=== PATIENT | female | born 1970 | race American Indian/Alaskan Native ===

== ENCOUNTER 2017-02-06 05:56 | Day surgery (SDC) | payer OTHER ==
[2017-02-04 10:30] LABS: Basophils % (Auto) 0.2 % (0.0-1.8); Eosinophils % (Auto) 1.3 % (0.0-4.3); Hematocrit 37.2 % (30.3-42.9); Mean Corpuscular HGB Conc 32 % (30-34); Mean Corpuscular Hemoglobin 28 pg (28-32); Mean Corpuscular Volume 86 fl (79-97); Platelet Count 196 K/mm3 (140-440); Red Blood Count 4.35 M/mm3 (3.65-5.03); Red Cell Distribution Width 14.5 % (13.2-15.2); White Blood Count 8.7 K/mm3 (4.5-11.0)
--- NOTE | 2017-02-04 10:38 | Anesthesia Consultation ---
Anesthesia Consult and Med Hx Date of service: 02/04/17 - Airway Anesthetic Teeth Evaluation: Good ROM Head & Neck: Adequate Mental/Hyoid Distance: Adequate Mallampati Class: Class I Intubation Access Assessment: Good - Pulmonary Exam CTA: Yes - Cardiac Exam Cardiac Exam: RRR - Pre-Operative Health Status ASA Pre-Surgery Classification: ASA3 Proposed Anesthetic Plan: General - Cardiovascular System Hx Hypertension: Yes (x7 years) Hx Coronary Artery Disease: Yes (CHF, STENT x1) Hx Heart Attack/AMI: Yes (02/2015 IN [place]) - Gastrointestinal Hx Gastroesophageal Reflux Disease: Yes (no issues the past 7 months, no meds) - Hematic Hx Anemia: Yes (RESOLVED) - Other Systems Hx Alcohol Use: Yes (SOCIALLY) Hx Substance Use: No Hx Cancer: No - Additional Comments Anesthesia Medical History Comments: april 2016 had fluid on lungs, Resolved
[2017-02-04 10:50] LABS: Anion Gap 18 mmol/L; BUN/Creatinine Ratio 26; Blood Urea Nitrogen 13 mg/dL (7-17); Carbon Dioxide 24 mmol/L (22-30); Chloride 101.7 mmol/L (98-107); Glucose 145 mg/dL (65-100); Potassium 3.9 mmol/L (3.6-5.0); Sodium 140 mmol/L (137-145)
--- NOTE | 2017-02-05 20:21 | History and Physical Report ---
History of Present Illness Date of examination: 01/30/17 Chief complaint: Menorrhagia, endometrial mass, uterine fibroids History of present illness: Past History : 1 Term Births: 1 Living Children: 1 # 1 Delivery date: 1984 Delivery type: ONCOLOGY RN History Operations: Cardiac catheterization with stent (2015) [place] [facility] [place]: negative Uterine Anomaly: positive fibroids Infection History Hx of STD: HSV Active Medications (reviewed today): OXYCODONE-ACETAMINOPHEN 5-325 MG ORAL TABLET (OXYCODONE-ACETAMINOPHEN) 1-2po q6h ASPIRIN 81 MG ORAL TABLET (ASPIRIN) NITROGLYCERIN 0.4 MG/SPRAY TRANSLINGUAL SOLUTION (NITROGLYCERIN) VENTOLIN HFA 108 (90 BASE) MCG/ACT INHALATION AEROSOL SOLUTION (ALBUTEROL SULFATE) DICLOFENAC SODIUM 75 MG ORAL TABLET DELAYED RELEASE (DICLOFENAC SODIUM) SPIRONOLACTONE 25 MG ORAL TABLET (SPIRONOLACTONE) VALSARTAN 160 MG ORAL TABLET (VALSARTAN) METOPROLOL SUCCINATE ER 25 MG ORAL TABLET EXTENDED RELEASE 24 HOUR (METOPROLOL SUCCINATE) VITAMIN D2 2000 UNIT ORAL TABLET (ERGOCALCIFEROL) FUROSEMIDE 40 MG ORAL TABLET (FUROSEMIDE) ATORVASTATIN CALCIUM 40 MG ORAL TABLET (ATORVASTATIN CALCIUM) Current Allergies (reviewed today): No known allergies Past Medical History: Reviewed history from 12/12/2016 and no changes required: Myocardial Infarction (2015) knee (L) and foot (B) pain Asthma Hypertension Vitamin D deficiency Past Surgical History: Cardiac catheterization with stent (2015) [place] [facility] [place] History Summary: Reviewed history and no changes required: 02/05/2017 Father (biol.) - Has Family History of Prostate Cancer - Entered On: 01/20/2017 Mother (biol.) - Has Family History Breast Cancer - daignosed age 60 - Entered On: 01/20/2017 Other family member - Has No Family History of Biliary Tract Cancer - Entered On : 01/20/2017 Other family member - Has No Family History of Brain Cancer - Entered On: 2016 Other family member - Has No Family History of Colon Cancer - Entered On: 2016 Other family member - Has No Family History of DVT/PE on OCP - Entered On: 2016 Other family member - Has No Family History of Kidney/Urinary Tract Cancer - Entered On: 01/20/2017 Other family member - Has No Family History of Ovarvian Cancer - Entered On: 01/20/2017 Other family member - Has No Family History of Pancreatic Cancer - Entered On: 01/20/2017 Other family member - Has No Family History of Stomach Cancer - Entered On: 01/20 Other family member - Has No Family History of Small Bowel Cancer - Entered On: 01/20/2017 Other family member - Has No Family History of Uterine Cancer - Entered On: 01/20 Social History: Reviewed history from 12/12/2016 and no changes required: Patient is Smoking History: Patient has never smoked. Risk Factors: PAP Smear History: Date of Last PAP Smear: 12/12/2016 Previous Tobacco Use: Signed On - 12/24/2016 Smoked Tobacco Use: Never smoker Smokeless Tobacco Use: Never Drug use: no Previous Alcohol Use: Signed On - 12/24/2016 Alcohol use: no Exercise: no Seatbelt use: 100 % Mammogram History: Date of Last Mammogram: 01/15/2017 PAP Smear History: Date of Last PAP Smear: 12/12/2016 Review of Systems General Denies fever, chills, sweats, anorexia, fatigue, weakness, malaise, weight loss and sleep disorder. : Menorrhagia Denies vaginal discharge, incontinence, dysuria, hematuria, urinary frequency, amenorrhea, pelvic pain, genital sores, decreased libido, painful periods, painful sex, urinary urgency, hot flashes, vaginal dryness, vaginal itching and vaginal odor. CV Denies chest pains, palpitations, syncope, dyspnea on exertion, orthopnea, PND and peripheral edema. Resp Denies cough, dyspnea at rest, excessive sputum, hemoptysis, wheezing and pleurisy. GI Denies nausea, vomiting, diarrhea, constipation, change in bowel habits, abdominal pain, melena, hematochezia, jaundice, gas/bloating, indigestion/ heartburn, dysphagia and odynophagia. Endo Denies cold intolerance, heat intolerance, polydipsia, polyphagia, polyuria and unusual weight change. Breast Denies left breast lump, right breast lump, nipple discharge, bloody discharge from nipple, breast pain, abnormal mammogram and breast enlargement. MS Denies back pain, joint pain, joint swelling, muscle cramps, muscle weakness, stiffness, arthritis, sciatica, restless legs, leg pain at night and leg pain with exertion. Derm Denies rash, itching, dryness and suspicious lesions. Neuro Denies paralysis, paresthesias, headache, seizures, tremors, vertigo, transient blindness, frequent falls, frequent headaches and difficulty walking. Psych Denies depression, anxiety, irritability and mood swings. Eyes Denies blurring, diplopia, irritation, discharge, vision loss, eye pain and photophobia. ENT Denies earache, ear discharge, tinnitus, decreased hearing, nasal congestion, nosebleeds, sore throat and hoarseness. Allergy Denies urticaria, allergic rash, hay fever and recurrent infections. Heme Denies abnormal bruising, bleeding and enlarged lymph nodes. Physical Exam Other Exams Abdomen: soft, non-tender, no masses, Skin: no ulcers, xanthomas Extremities: normal alignment, no joint enlargement, crepitus, masses or tenderness; normal tone and strength Genitourinary Exam Vagina: normal appearance, no discharge, lesions. No evidence of cystocele or rectocele. Cervix: normal appearance, no lesions, no discharge Uterus: unable to palpate Adnexa: unable to palpate due to obesity PHYSICAL EXAM Skin no ulcers, xanthomas Chest: respiratory effort normal, clear to auscultation CV: regular, normal S1-S2, no murmur, no rub, no gallop Abdomen: soft, non-tender, no masses, Extremities: normal alignment, no joint enlargement, crepitus, masses or tenderness; normal tone and strength ONCOLOGY RN Exams Vulva/Vagina: normal appearance, no discharge, lesions. No evidence of cystocele or rectocele. Cervix: normal appearance, no lesions, no discharge Uterus: unable to palpate Adnexae: unable to palpate due to obesity Impression & Recommendations: Problem # 1: Menorrhagia (ICD-626.2) (JHH26-X65.0) Diagnosis explained to patient . Questions answered. Discussed with patient various medical and surgical therapies common for treatment: Hormonal/medical therapy,endometrial ablation or hysterectomy. Diagnosis explained to patient . Questions answered. Discussed with patient various medical, surgical and radioloigal therapies common for treatment: Hormonal/medical therapy, fibroid embolization, removal of fibroids or hysterectomy. She desires minimal surgical intervention at this time and desires to proceed with hysteroscopic excision of endometrial mass with D&C. She specifically declines ablation and hysterectomy. She was informed her bleeding may continue to be heavy or may become heavy later. Patient voiced understanding and agrees with plan of care Consent reviewed and signed . Possible laparoscopy or laparotomy explained to patient. The risks and alternatives for this surgery were reviewed with the patient. She was informed of possible bleeding, infection, injury to bowel, bladder, ureters or other adjacent organs. The patient was instructed/informed the following: The normal length of hospital stay for this procedure. Nothing to eat or drink after midnight the evening prior to surgery. Clear liquids the day before surgery. Pre-op instruction sheets given. Wound care instructions given. Infection precautions reviewed, patient to call for any signs or symptoms of infection. The usual discomforts associated with this procedure were detailed. Proper use of pain medicines was reviewed. Patient was given ample opportunity to have all her questions answered before signing informed consent. Problem # 2: Endometrial mass (ICD-236.0) (VJK41-Z62.0) Problem # 3: Fibroids of uterus; Intramural (ICD-218.1) (MXV16-W24.1) Medications Added to Medication List This Visit: 1) Oxycodone-acetaminophen 5-325 Mg Oral Tablet (Oxycodone-acetaminophen) .... 1-2po q6h 2) Aspirin 81 Mg Oral Tablet (Aspirin) Prescriptions: OXYCODONE-ACETAMINOPHEN 5-325 MG ORAL TABLET (OXYCODONE-ACETAMINOPHEN) 1-2po q6h #10 Tablet x 0 Entered and Authorized by: Laura Bautista MD Method used: Print then Give to Patient RxID: [id number] OXYCODONE-ACETAMINOPHEN 5-325 MG ORAL TABLET (OXYCODONE-ACETAMINOPHEN) 1-2po q6h #10 Tablet x 0 Entered and Authorized by: Laura Bautista MD Method used: Print then Give to Patient RxID: [id number] Medications and Allergies Allergies Allergy/AdvReac Type Severity Reaction Status Date / Time No Known Allergies Allergy Unverified 02/03/17 11:55 Home Medications Medication Instructions Recorded Confirmed Last Taken Type Aspirin TAB 81 mg PO DAILY 02/03/17 02/03/17 01/27/17 12:00 History Ergocalciferol(Vitamin D2)(Nf) 400 unit PO DAILY 02/03/17 02/03/17 01/27/17 17: 00 History [Vitamin D (Nf)] Albuterol Sulfate [Ventolin HFA] 2 puff IH Q4H PRN 02/05/17 02/05/17 Unknown History Atorvastatin Calcium [Atorvastatin 1 tab PO DAILY 02/05/17 02/05/17 Unknown History Calcium] Furosemide [Lasix TAB] 1 tab PO DAILY 02/05/17 02/05/17 Unknown History Furosemide [Lasix TAB] 40 mg PO QDAY PRN 02/05/17 02/05/17 Unknown History Metoprolol Succinate [Toprol Xl] 25 mg PO DAILY 02/05/17 02/05/17 Unknown History Spironolactone [Spironolactone] 1 tab PO DAILY 02/05/17 02/05/17 Unknown History Valsartan [Diovan] 1 tab PO DAILY 02/05/17 02/05/17 Unknown History Active Meds: Active Medications Famotidine (Pepcid) 20 mg PO PREOP NR Stop: 02/06/17 23:00 Midazolam HCl (Versed) 2 mg IV PREOP NR Stop: 02/06/17 23:00 Exam Vital Signs Temp Pulse Resp BP 98.4 F 68 16 104/60 02/04/17 10:10 02/04/17 10:10 02/04/17 10:10 02/04/17 10:10 Results - Labs 02/04/17 10:10 02/04/17 10:10 Assessment and Plan - Patient Problems (1) Menorrhagia Status: Acute Qualifiers: Menorrahagia type: with regular cycle Qualified Code(s): N92.0 - Excessive and frequent menstruation with regular cycle (2) Endometrial mass Status: Acute (3) Fibroid Status: Chronic Qualifiers: Uterine leiomyoma location: intramural and subserous Qualified Code(s): D25.1 - Intramural leiomyoma of uterus; D25.2 - Subserosal leiomyoma of uterus; D25.2 - Subserosal leiomyoma of uterus (4) History of myocardial infarct at age less than 60 years Status: Chronic (5) BMI 37.0-37.9, adult Status: Chronic (6) Hypertension Status: Chronic Qualifiers: Hypertension type: essential hypertension Qualified Code(s): I10 - Essential (primary) hypertension
[~2017-02-06 05:56] MED LIST: ANCEF/STERILE WATER 2 GM/20 ML 2 GM/20 ML SYRINGE IV NR; NACL 0.9% 1000 ML 1,000 ML IV SCH; PEPCID PO NR; VERSED IV NR
[2017-02-06] MEDS ORDERED: NACL BACTERIOSTATIC INFILTRATI ONE (06:17)
[2017-02-06] MEDS ORDERED: MORPHINE IV PRN (07:02)
[2017-02-06] MEDS ORDERED: PERCOCET 5/325 PO PRN (07:02)
[2017-02-06] MEDS ORDERED: ZOFRAN IV PRN (07:02)
--- NOTE | 2017-02-06 07:02 | Anesthesia Day of Surgery ---
Anesthesia Day of Surgery - Day of Surgery Patient Examined: Yes Patient H&P Reviewed: Yes Patient is NPO: Yes
[2017-02-06] MEDS ORDERED: DECADRON ONE (07:26)
[2017-02-06] MEDS ORDERED: ZOFRAN ONE (07:26)
[2017-02-06] MEDS ORDERED: DIPRIVAN 10 MG/ML IV ONE (07:26)
[2017-02-06] MEDS ORDERED: XYLOCAINE MPF 2% ONE (07:26)
[2017-02-06] MEDS ORDERED: SUBLIMAZE ONE (07:26)
[2017-02-06] MEDS ORDERED: TORADOL ONE (07:49)
[2017-02-06] MEDS ORDERED: NACL 0.9% IR ONE ×2 (08:00)
--- NOTE | 2017-02-06 08:31 | Discharge Summary ---
Providers - Providers Date of discharge: 02/06/17 Attending physician: VLAD JALLOH Primary care physician: CAROL MIKE Hospitalization Condition: Good Procedures: Hysteroscopic excision of endometrial mass and D&C Hospital course: unremarkable Disposition: DC-01 TO HOME OR SELFCARE - Discharge Diagnoses (1) Menorrhagia Status: Resolved Qualifiers: Menorrahagia type: with regular cycle Qualified Code(s): N92.0 - Excessive and frequent menstruation with regular cycle (2) Endometrial mass Status: Resolved (3) Fibroid Status: Chronic Qualifiers: Uterine leiomyoma location: intramural and subserous Qualified Code(s): D25.1 - Intramural leiomyoma of uterus; D25.2 - Subserosal leiomyoma of uterus; D25.2 - Subserosal leiomyoma of uterus (4) History of myocardial infarct at age less than 60 years Status: Chronic (5) BMI 37.0-37.9, adult Status: Chronic (6) Hypertension Status: Chronic Qualifiers: Hypertension type: essential hypertension Qualified Code(s): I10 - Essential (primary) hypertension Core Measure Documentation - Palliative Care Palliative Care/ Comfort Measures: Not Applicable - Core Measures Any of the following diagnoses?: none Exam - Constitutional Vitals: Temp Pulse Resp BP Pulse Ox 98.0 F 69 24 102/68 96 02/06/17 07:07 02/06/17 07:07 02/06/17 07:07 02/06/17 07:07 02/06/17 07:07 General appearance: Present: no acute distress - Respiratory Respiratory effort: normal - Cardiovascular Rhythm: regular Plan Activity: other (No sex) Weight Bearing Status: Full Weight Bearing Diet: low salt Special Instructions: no heavy lifting (>25#) Follow up with: CAROL MIKE MD [Primary Care Provider] - 7 Days VLAD JALLOH MD [Staff Physician] - (as scheduled)
--- NOTE | 2017-02-06 08:46 | Operative Report ---
Operative Report Operative Report: Date: 02/06/2017 Preoperative diagnosis: 1. Menorrhagia 2. Uterine fibroids 3. Endometrial mass Postoperative diagnosis: 1. Menorrhagia 2. Uterine fibroids 3. Endometrial mass . Procedure: 1. Cervical dilation 2. Hysteroscopic excision of endometrial mass using the Myosure device 3. Uterine curettage Surgeon: Laura Bautista MD Internal Auditor: [] Anesthesiologist: Ahsley Gibbons MD Anesthesia: Monitored anesthetic care EBL: Minimal Findings: Uterine cavity length: 8 cm, small anterior fundal mass. Distention medium: Normal saline Fluid deficit: 0 mL Procedure: After risks, benefits, complications, consequences and alternatives for this procedure were explained, and patient voiced her understanding and her desire to proceed, she is taken to the OR and placed in the supine position. General anesthesia was induced. She was placed in the dorsolithotomy position. Exam under anesthesia was unremarkable. She was then prepped and draped in usual sterile fashion. Timeout was performed. A Sol catheter was introduced into the bladder with drainage of clear yellow urine. A operative speculum was introduced was introduced into the vagina. The anterior lip of the cervix was grasped with single-tooth tenaculum and the uterus was sounded to 8 cm. The cervix was progressively dilated to allow the operative hysteroscope. The above findings were noted. Using the Myosure device hysteroscopic excision of the mass was performed. Uterine curettage was then performed. The procedure was ended. The speculum and the tenaculum were removed. Hemostasis was noted. The Sol catheter was removed. No bleeding from the tenaculum site was noted. Clear yellow urine was draining into the Sol catheter at the end of the procedure. Patient tolerated procedure well and taken to recovery room in stable condition
--- NOTE | 2017-02-06 09:16 | Post Anesthesia Evaluation ---
- Post Anesthesia Evaluation Patient Participated: Yes Airway Patent: Yes Stable Respiratory Function: Yes Nausea/Vomiting: No Temp > 96.8F: Yes Pain Manageable: Yes Adequeate Hydration: Yes Anesthesia Complications: No Block Receding Appropriately: Not Applicable Patient on Ventilator: No
[2017-02-06 10:14] VITALS: BP 117/78
== END 2017-02-06 10:15 | disposition home or self-care (01) ==
LOC: OR 05:56
PROVIDERS: ATTEND Obstetrics & Gynecology
DX: N84.0 Polyp of corpus uteri (principal); D25.9 Leiomyoma of uterus, unspecified; I25.10 Atherosclerotic heart disease of native coronary artery without angina pectoris; I11.0 Hypertensive heart disease with heart failure; I50.9 Heart failure, unspecified; I25.2 Old myocardial infarction; J45.909 Unspecified asthma, uncomplicated; K21.9 Gastro-esophageal reflux disease without esophagitis; Z95.5 Presence of coronary angioplasty implant and graft; Z79.82 Long term (current) use of aspirin; Z79.899 Other long term (current) drug therapy
CPT/HCPCS: 36415; 58558; 80048; 81025; 85025; 86850; 86900; 86901; 88305; A4217; C1782; J0690; J1100; J1885; J2250; J2405; J2704; J7030; J3010

== ENCOUNTER 2018-04-06 10:15 | Outpatient (CLI) | payer OTHER ==
--- NOTE | 2018-04-08 10:21 | Magnetic Resonance Report ---
BILATERAL BREAST MRI WITHOUT AND WITH CONTRAST: 04/06/18 10:15:00 CLINICAL: A left central asymmetry on recent mammograms including a [facility] mammogram from 02/03/18 and a left tomosynthesis from [facility] 01/29/17. Images from those exams are available. Ultrasound on 02/03/18 also demonstrated probably benign hyperechoic masses of the left breast at 7 o'clock 7 cm from the nipple and at 9 o'clock 8 cm from the nipple. TECHNIQUE: Axial 1.0-mm T1 without, axial high resolution 2.0-mm T2 and axial 1.0-mm dynamic Vibrant high-resolution postcontrast T1 fat saturation sequences on a 1.5 Miranda magnet. The examination was performed with an 8 channel dedicated [place] breast coil. Post processing with CAD and subtraction was performed on an [employer] workstation. 18.0 cc of Multihance was injected without incident for the contrast portion of the exam. Consent was obtained prior to the administration of the contrast. FINDINGS: Right: Minimal background parenchymal enhancement. No mass or suspicious enhancement. No suspicious lymph nodes. Left: Minimal background parenchymal enhancement. No suspicious mass or suspicious enhancement. An oval smooth nonenhancing central left breast mass measures approximately 12 x 5 mm. It is hypointense on T2 and slightly hyperintense to fat on T1. It appears to correlate with the asymmetry on the recent mammogram and previous tomosynthesis. No MR findings to correlate with the hyperechoic masses recently identified by ultrasound. No suspicious lymph nodes. IMPRESSION: 1. A benign 12 mm left central breast mass and negative right breast. 2. No MR findings to correlate with hyperechoic left breast masses described on the 02/03/18 ultrasound. The ultrasound findings are typical of benign fat necrosis and I would not necessarily expect to see a correlate on MRI. 3. Recommend routine mammographic screening. BI-RADS 2 - - Benign
== END 2018-04-06 10:16 | disposition home or self-care (01) ==
LOC: SPVIMAG 10:15
PROVIDERS: ATTEND Surgery
DX: N63.24 Unspecified lump in the left breast, lower inner quadrant (principal); I11.0 Hypertensive heart disease with heart failure; I50.9 Heart failure, unspecified; E78.00 Pure hypercholesterolemia, unspecified; K21.9 Gastro-esophageal reflux disease without esophagitis; Z80.3 Family history of malignant neoplasm of breast
CPT/HCPCS: A9577; C8908; 77049

== ENCOUNTER 2019-01-05 10:28 | Outpatient (CLI) | payer OTHER ==
--- NOTE | 2019-01-05 15:05 | Ultrasound Report ---
BILATERAL DIGITAL DIAGNOSTIC MAMMOGRAM WITH CAD -- 01/05/2019 LEFT LIMITED BREAST ULTRASOUND INDICATION: Follow-up left breast masses. TECHNIQUE: Digital bilateral mammographic imaging was performed. Limited ultrasound was performed. T his examination was interpreted with the benefit of Computer-Aided Detection (CAD) analysis. COMPARISON: 02/03/2018 bilateral mammogram and left breast ultrasound and 04/06/2018 Breast MRI. FINDINGS: Breast Density: The breasts are heterogeneously dense, which may obscure small masses. MAMMOGRAPHIC FINDINGS: There is no evidence of dominant mass, suspicious calcifications or architectu ral distortion in either breast. Left mammographic asymmetries are stable. ULTRASOUND FINDINGS: Targeted ultrasound evaluation was performed of the area of interest. Ultrasou nd of the left breast demonstrated an oval circumscribed superficial relatively hyperechoic mass at 8 :00 6 cm from the nipple measuring 1.2 x 1.6 x 0.4 cm compared to 1.2 x 0.5 x 0.9 cm on the last exam . Ultrasound of the left breast demonstrated a stable oval predominantly hyperechoic mass at 9:00 5 c m from the nipple measuring 8 x 8 x 6 mm. This compares to 7 x 7 x 6 mm on the last exam.. A stable b enign cyst at 8:00 6 cm from the nipple measures 7 x 6 x 3 mm. IMPRESSION: Negative mammogram and stable left breast masses at 8:00 and 9:00. The slight differences in measurements for the mass at 8:00 is most likely related to technical differences when measuring. Neither these masses were identified along the MRI and both have benign morphologic features. Follow up recommendation: Routine yearly BI-RADS Category 2: Benign. A "normal" or negative report should not discourage follow up or biopsy of a clinically significant f inding. A written summary of these findings will be mailed to the patient. The patient will be entered into a mammography reporting system which will generate a reminder letter for the patient's next appointmen t at the appropriate interval. According to the [employer], yearly mammograms are recommended starting at age 40 and continuing as long as a woman is in good health. Breast MRI is recommended for women with an alek roximately 20-25% or greater lifetime risk of breast cancer, including women with a strong family his tory of breast or ovarian cancer and women who have been treated for Hodgkin's disease. Signer Name: Aman Donnelly MD Signed: 01/05/2019 3:01 PM Workstation Name: [id number]
--- NOTE | 2019-01-06 08:06 | Mammography Report ---
BILATERAL DIGITAL DIAGNOSTIC MAMMOGRAM WITH CAD -- 01/05/2019 LEFT LIMITED BREAST ULTRASOUND INDICATION: Follow-up left breast masses. TECHNIQUE: Digital bilateral mammographic imaging was performed. Limited ultrasound was performed. Th is examination was interpreted with the benefit of Computer-Aided Detection (CAD) analysis. COMPARISON: 02/03/2018 bilateral mammogram and left breast ultrasound and 04/06/2018 Breast MRI. FINDINGS: Breast Density: The breasts are heterogeneously dense, which may obscure small masses. MAMMOGRAPHIC FINDINGS: There is no evidence of dominant mass, suspicious calcifications or architectu ral distortion in either breast. Left mammographic asymmetries are stable. ULTRASOUND FINDINGS: Targeted ultrasound evaluation was performed of the area of interest. Ultrasound of the left breast demonstrated an oval circumscribed superficial relatively hyperechoic mass at 8:0 0 6 cm from the nipple measuring 1.2 x 1.6 x 0.4 cm compared to 1.2 x 0.5 x 0.9 cm on the last exam. Ultrasound of the left breast demonstrated a stable oval predominantly hyperechoic mass at 9:00 5 cm from the nipple measuring 8 x 8 x 6 mm. This compares to 7 x 7 x 6 mm on the last exam.. A stable hilaria ign cyst at 8:00 6 cm from the nipple measures 7 x 6 x 3 mm. IMPRESSION: Negative mammogram and stable left breast masses at 8:00 and 9:00. The slight differences in measurements for the mass at 8:00 is most likely related to technical differences when measuring. Neither these masses were identified along the MRI and both have benign morphologic features. Follow up recommendation: Routine yearly BI-RADS Category 2: Benign. A "normal" or negative report should not discourage follow up or biopsy of a clinically significant f inding. A written summary of these findings will be mailed to the patient. The patient will be entered into a mammography reporting system which will generate a reminder letter for the patient's next appointmen t at the appropriate interval. According to the [employer], yearly mammograms are recommended starting at age 40 and continuing as long as a woman is in good health. Breast MRI is recommended for women with an appr oximately 20-25% or greater lifetime risk of breast cancer, including women with a strong family hist ory of breast or ovarian cancer and women who have been treated for Hodgkin's disease. Signer Name: Aman Donnelly MD Signed: 01/06/2019 8:02 AM Workstation Name: [id number]
== END 2019-01-05 10:29 | disposition home or self-care (01) ==
LOC: MAMMO 10:28
PROVIDERS: ATTEND Obstetrics & Gynecology
DX: N63.24 Unspecified lump in the left breast, lower inner quadrant (principal); I10 Essential (primary) hypertension
CPT/HCPCS: 77066

== ENCOUNTER 2019-09-21 10:14 | Outpatient (CLI) | payer OTHER ==
--- NOTE | 2019-09-21 12:11 | Magnetic Resonance Report ---
BILATERAL BREAST MRI WITH AND WITHOUT CONTRAST CLINICAL INFORMATION/INDICATION: Follow-up of left breast mass. TECHNICAL: Coronal STIR, axial T1 and T2-weighted fat sat images were obtained precontrast. 18 cc Mul tiHance contrast was injected intravenously and serial axial T1 weighted images with fat saturation w ere obtained. 3-D MIP projections, kinetic analysis and subtraction imaging was utilized to evaluate. A dedicated 8-channel breast coil was used for image acquisition. COMPARISON: Screening mammogram from 09/05/2019. Diagnostic mammogram and left breast ultrasound from 01/05/2019. FINDINGS: Right breast: Scattered fibroglandular tissue is seen with low background parenchymal enhancement. No mass, suspicious focus of enhancement, lymphadenopathy or other significant abnormality is seen. Left breast: Scattered fibroglandular tissue is seen with low background parenchymal enhancement. No mass, suspicious focus of enhancement, lymphadenopathy or other significant abnormality is seen. Additional findings: None. IMPRESSION: No evidence of malignancy in either breast. No distinct mass is seen to correlate with the prior mamm ogram/ultrasound findings. Continued annual screening mammography is recommended. Follow up recommendation: Routine yearly BI-RADS Category 1: Negative. Signer Name: Grayson Schaffer MD Signed: 09/21/2019 12:06 PM Workstation Name: [id number]
== END 2019-09-21 10:15 | disposition home or self-care (01) ==
LOC: SPVIMAG 10:14
PROVIDERS: ATTEND Surgery
DX: R92.8 Other abnormal and inconclusive findings on diagnostic imaging of breast (principal); N64.9 Disorder of breast, unspecified
CPT/HCPCS: A9577; C8908; 77049

== ENCOUNTER 2020-05-29 15:58 | Emergency (ER) | payer OTHER ==
[2020-05-29 16:31] VITALS: BP 138/94
--- NOTE | 2020-05-29 17:30 | Emergency Department Report ---
ED Female HPI - General Chief complaint: Vaginal Bleeding Stated complaint: EXCESSIVE BLEEDING/DR. BAUTISTA REFER Time Seen by Provider: 05/29/20 17:21 Source: patient Mode of arrival: Ambulatory Limitations: No Limitations - History of Present Illness Initial comments: Patient is a 49-year-old female presents emergency room with complaints of heavy vaginal bleeding that began 3 days ago. She states that the day before she began taking antibiotics for a tooth. She states that the next day she began having the bleeding. She states over the last 3 months she has not had a full menstrual cycle and only had a couple of days of spotting. She states that she has a history of abnormal uterine bleeding secondary to uterine fibroids. She has associated lower pelvic and abdominal cramping. She states that she has noticed some small clots. She states that she is changing her menstrual pad every hour. She states that she spoke with her [employer] Dr. Bautista who advised her to be evaluated the emergency department. She denies any fever, nausea, vomiting, diarrhea, dysuria, urinary symptoms, abnormal vaginal discharge. Past medical history of SD in 2016 with stent placement, hypertension, hyperlipidemia. No allergies to medications. - Related Data Home Medications Medication Instructions Recorded Confirmed Last Taken Aspirin TAB 81 mg PO DAILY 02/03/17 02/03/17 01/27/17 12:00 Ergocalciferol(Vitamin D2)(Nf) 400 unit PO DAILY 02/03/17 02/03/17 01/27/17 17:00 [Vitamin D (Nf)] Albuterol Sulfate [Ventolin HFA] 2 puff IH Q4H PRN 02/05/17 02/06/17 01/09/17 Atorvastatin Calcium 1 tab PO DAILY 02/05/17 02/06/17 02/05/17 Furosemide [Lasix TAB] 40 mg PO QDAY 02/05/17 02/06/17 02/05/17 Metoprolol Succinate [Toprol Xl] 25 mg PO DAILY 02/05/17 02/06/17 02/05/17 17:00 Spironolactone 1 tab PO DAILY 02/05/17 02/06/17 02/05/17 Valsartan [Diovan] 1 tab PO DAILY 02/05/17 02/06/17 02/05/17 Previous Rx's Medication Instructions Recorded Last Taken Type medroxyPROGESTERone ACETATE 10 mg PO ONCE #10 tablet 05/29/20 Unknown Rx [Provera] Allergies Allergy/AdvReac Type Severity Reaction Status Date / Time No Known Allergies Allergy Unverified 02/03/17 11:55 ED Review of Systems ROS: Stated complaint: EXCESSIVE BLEEDING/DR. BAUTISTA REFER Other details as noted in HPI Comment: All other systems reviewed and negative ED Past Medical Hx - Past Medical History Hx Hypertension: Yes (x7 years) Hx Heart Attack/AMI: Yes (02/2015 IN [place]) Hx Congestive Heart Failure: Yes Hx GERD: Yes Hx HIV: No - Surgical History Past Surgical History?: Yes Hx Coronary Stent: Yes (02/2015) - Social History Smoking Status: Never Smoker - Medications Home Medications: Home Medications Medication Instructions Recorded Confirmed Last Taken Type Aspirin TAB 81 mg PO DAILY 02/03/17 02/03/17 01/27/17 12:00 History Ergocalciferol(Vitamin D2)(Nf) 400 unit PO DAILY 02/03/17 02/03/17 01/27/17 17:00 History [Vitamin D (Nf)] Albuterol Sulfate [Ventolin HFA] 2 puff IH Q4H PRN 02/05/17 02/06/17 01/09/17 History Atorvastatin Calcium 1 tab PO DAILY 02/05/17 02/06/17 02/05/17 History Furosemide [Lasix TAB] 40 mg PO QDAY 02/05/17 02/06/17 02/05/17 History Metoprolol Succinate [Toprol Xl] 25 mg PO DAILY 02/05/17 02/06/17 02/05/17 17:00 History Spironolactone 1 tab PO DAILY 02/05/17 02/06/17 02/05/17 History Valsartan [Diovan] 1 tab PO DAILY 02/05/17 02/06/17 02/05/17 History medroxyPROGESTERone ACETATE 10 mg PO ONCE #10 tablet 05/29/20 Unknown Rx [Provera] ED Physical Exam - General Limitations: No Limitations General appearance: alert, in no apparent distress - Head Head exam: Present: atraumatic, normocephalic - Eye Eye exam: Present: normal appearance - ENT ENT exam: Present: mucous membranes moist - Respiratory Respiratory exam: Present: normal lung sounds bilaterally. Absent: respiratory distress, wheezes, rales, rhonchi, stridor, chest wall tenderness, accessory muscle use, decreased breath sounds, prolonged expiratory - Cardiovascular Cardiovascular Exam: Present: regular rate, normal rhythm, normal heart sounds. Absent: systolic murmur, diastolic murmur, rubs, gallop - GI/Abdominal GI/Abdominal exam: Present: soft, normal bowel sounds. Absent: distended, te nderness, guarding, rebound, rigid - Neurological Exam Neurological exam: Present: alert, oriented X3 - Psychiatric Psychiatric exam: Present: normal affect, normal mood - Skin Skin exam: Present: warm, dry, intact ED Course Vital Signs 05/29/20 16:29 Temperature 98.4 F Pulse Rate 56 L Respiratory 17 Rate Blood Pressure 138/94 [Right] O2 Sat by Pulse 97 Oximetry - Consultations Consultation #1: 05/29/20 18:[address] Bautista, [employer] she states that she advised the patient to be seen in her office tomorrow, she is currently in the emergency department and is going to see patient at bedside, she advised that she wants a CBC and hCG quant and she is going to do a speculum examination on patient and then patient can be discharged home ED Medical Decision Making - Lab Data Result diagrams: 05/29/20 17:55 - Medical Decision Making Patient is a 49-year-old female presents emergency room with complaints of heavy vaginal bleeding that began 3 days ago. She states that the day before she began taking antibiotics for a tooth. She states that the next day she began having the bleeding. She states over the last 3 months she has not had a full menstrual cycle and only had a couple of days of spotting. She states that she has a history of abnormal uterine bleeding secondary to uterine fibroids. She has associated lower pelvic and abdominal cramping. She states that she has noticed some small clots. She states that she is changing her menstrual pad every hour. She states that she spoke with her [employer] Dr. Bautista who advised her to be evaluated the emergency department. She denies any fever, nausea, vomiting, diarrhea, dysuria, urinary symptoms, abnormal vaginal discharge. Past medical history of SD in 2016 with stent placement, hypertension, hyp erlipidemia. No allergies to medications. Vitals are stable. No abdominal tenderness on exam, no guarding, no rebound, no rigidity, normal bowel sounds, no peritoneal signs. spoke with Dr. Bautista, [employer] she states that she advised the patient to be seen in her office tomorrow, she is currently in the emergency department and is going to see patient at bedside, she advised that she wants a CBC and hCG quant and she is going to do a speculum examination on patient and then patient can be discharged home. CBC is normal, hCG quant is less than 2. Dr. Bautista, [employer] took over care of this patient, please see her note and her discharge instructions, she is planning to see patient in office. Critical care attestation.: If time is entered above; I have spent that time in minutes in the direct care of this critically ill patient, excluding procedure time. ED Disposition Clinical Impression: History of myocardial infarct at age less than 60 years, BMI 37.0-37.9, adult Menorrhagia Qualifiers: Menorrhagia type: with irregular cycle Qualified Code(s): N92.1 - Excessive and frequent menstruation with irregular cycle Fibroid Qualifiers: Uterine leiomyoma location: intramural and subserous Qualified Code(s): D25.1 - Intramural leiomyoma of uterus Hypertension Qualifiers: Hypertension type: essential hypertension Qualified Code(s): I10 - Essential (primary) hypertension Disposition: DC-01 TO HOME OR SELFCARE Is pt being admited?: No Does the pt Need Aspirin: No Condition: Good Instructions: Hypertension (ED) Prescriptions: medroxyPROGESTERone ACETATE [Provera] 10 mg PO ONCE #10 tablet Referrals: VLAD BAUTISTA MD [Staff Physician] - (Tomorrow, May 30, 2020 at [facility] [place] for [facility]. ) PRIMARY CAREMD [Primary Care Provider] - 3-5 Days
[2020-05-29 18:07] LABS: Basophils # (Auto) 0.1 K/mm3 (0.0-0.1); Basophils % (Auto) 0.6 % (0.0-1.8); Eosinophils # (Auto) 0.2 K/mm3 (0.0-0.4); Eosinophils % (Auto) 1.9 % (0.0-4.3); Hematocrit 39.4 % (30.3-42.9); Hemoglobin 13.1 gm/dl (10.1-14.3); Lymphocytes # (Auto) 2.6 K/mm3 (1.2-5.4); Mean Corpuscular HGB Conc 33 % (30-34); Mean Corpuscular Volume 84 fl (79-97); Monocytes # (Auto) 0.4 K/mm3 (0.0-0.8); Monocytes % (Auto) 5.1 % (0.0-7.3); Platelet Count 227 K/mm3 (140-440); Red Blood Count 4.67 M/mm3 (3.65-5.03); Red Cell Distribution Width 14.7 % (13.2-15.2)
--- NOTE | 2020-05-29 19:28 | History and Physical Report ---
History of Present Illness Date of examination: 05/29/20 Chief complaint: Vaginal bleeding x3days History of present illness: 49 yof with known endometrial polyp who present with heavy vaginal bleeding for 3days. States no period for 3months then she started bleeding heavy 3days ago. She has a history of CAD Past History Past Medical History: CAD Past Surgical History: Other (cardiac stent and thumb surgery) Social history: full code. denies: smoking, alcohol abuse, prescription drug abuse, IV drug use Medications and Allergies Allergies Allergy/AdvReac Type Severity Reaction Status Date / Time No Known Allergies Allergy Unverified 02/03/17 11:55 Home Medications Medication Instructions Recorded Confirmed Last Taken Type Aspirin TAB 81 mg PO DAILY 02/03/17 02/03/17 01/27/17 12:00 History Ergocalciferol(Vitamin D2)(Nf) 400 unit PO DAILY 02/03/17 02/03/17 01/27/17 17:00 History [Vitamin D (Nf)] Albuterol Sulfate [Ventolin HFA] 2 puff IH Q4H PRN 02/05/17 02/06/17 01/09/17 History Atorvastatin Calcium 1 tab PO DAILY 02/05/17 02/06/17 02/05/17 History Furosemide [Lasix TAB] 40 mg PO QDAY 02/05/17 02/06/17 02/05/17 History Metoprolol Succinate [Toprol Xl] 25 mg PO DAILY 02/05/17 02/06/17 02/05/17 17:00 History Spironolactone 1 tab PO DAILY 02/05/17 02/06/17 02/05/17 History Valsartan [Diovan] 1 tab PO DAILY 02/05/17 02/06/17 02/05/17 History Review of Systems All systems: negative Genitourinary Female: menorrhagia, abnormal vaginal bleeding Exam - Constitutional Vitals: Temp Pulse Resp BP Pulse Ox 98.4 F 56 L 17 138/94 97 05/29/20 16:29 05/29/20 16:29 05/29/20 16:29 05/29/20 16:29 05/29/20 16:29 General appearance: Present: no acute distress - Respiratory Respiratory effort: normal - Extremities Extremities: No edema - Abdominal General gastrointestinal: Present: soft, non-tender Female genitourinary: Present: other (moderate blood in vagina, cervix w/o obvious polyps or masses, unable to palpate uterus d/t BMI) - Psychiatric Psychiatric: appropriate mood/affect, intact judgment & insight, memory intact, cooperative Results - Labs CBC & Chem 7: 05/29/20 17:55 Assessment and Plan - Patient Problems (1) Menorrhagia Current Visit: No Status: Resolved Plan to address problem: Patient stable, will give a dose of Provera and allow home on Provera with f/u in the office tomorrow (2) Fibroid Current Visit: No Status: Chronic Qualifiers: Uterine leiomyoma location: intramural and subserous Qualified Code(s): D25.1 - Intramural leiomyoma of uterus; D25.2 - Subserosal leiomyoma of uterus (3) Endometrial mass Current Visit: No Status: Resolved (4) History of myocardial infarct at age less than 60 years Current Visit: No Status: Chronic (5) Hypertension Current Visit: No Status: Chronic Qualifiers: Hypertension type: essential hypertension Qualified Code(s): I10 - Essential (primary) hypertension
[2020-05-29] MEDS ORDERED: medroxyPROGESTERone ACETATE 5 MG TAB PO ONE (19:42)
--- NOTE | 2020-05-29 19:51 | Discharge Summary ---
Providers - Providers Date of discharge: 05/29/20 Primary care physician: DORON ACOSTA MD Hospitalization Condition: Good Hospital course: Normal Disposition: DC-01 TO HOME OR SELFCARE Final Discharge Diagnosis (Prints w/discharge instructions): AUB, fiborids, endometrial mass - Discharge Diagnoses (1) Menorrhagia Status: Acute (2) Fibroid Status: Chronic Qualifiers: Uterine leiomyoma location: intramural and subserous Qualified Code(s): D25.1 - Intramural leiomyoma of uterus; D25.2 - Subserosal leiomyoma of uterus (3) Endometrial mass Status: Resolved (4) History of myocardial infarct at age less than 60 years Status: Chronic (5) Hypertension Status: Chronic Qualifiers: Hypertension type: essential hypertension Qualified Code(s): I10 - Essential (primary) hypertension Core Measure Documentation - Palliative Care Palliative Care/ Comfort Measures: Not Applicable - Core Measures Any of the following diagnoses?: none Exam - Constitutional Vitals: Temp Pulse Resp BP Pulse Ox 98.4 F 56 L 17 138/94 97 05/29/20 16:29 05/29/20 16:29 05/29/20 16:29 05/29/20 16:29 05/29/20 16:29 Plan Activity: other (No ssex. ) Weight Bearing Status: Full Weight Bearing Diet: low fat, low cholesterol, low salt Follow up with: PRIMARY CAREMD [Primary Care Provider] - 3-5 Days VLAD JALLOH MD [Staff Physician] - (Tomorrow, May 30, 2020 at [address] for [facility]. ) Prescriptions: medroxyPROGESTERone ACETATE [Provera] 10 mg PO ONCE #10 tablet
== END 2020-05-29 20:40 | disposition home or self-care (01) ==
LOC: ED 15:58
DX: D25.1 Intramural leiomyoma of uterus (principal); N92.1 Excessive and frequent menstruation with irregular cycle; I11.0 Hypertensive heart disease with heart failure; I50.9 Heart failure, unspecified; I25.2 Old myocardial infarction; K21.9 Gastro-esophageal reflux disease without esophagitis; Z98.890 Other specified postprocedural states; Z79.899 Other long term (current) drug therapy; Z68.37 Body mass index [BMI] 37.0-37.9, adult
CPT/HCPCS: 36415; 84702; 84703; 85025